=== PATIENT | male | born 1935 | race Caucasian/White ===

== ENCOUNTER 2019-05-17 10:41 | Inpatient (IN) ==
[2019-05-17] MEDS ORDERED: NS 500 ML IV ONE ×2 (11:42→12:56)
[2019-05-17] MEDS ORDERED: LASIX IV ONE ×2 (12:13→15:25)
[2019-05-17] MEDS ORDERED: LOVENOX SUBQ SCH (12:32)
[2019-05-17] MEDS ORDERED: EFFEXOR XR PO ONE (12:32)
[2019-05-17 12:46] LABS: BASO# 0.03 X1000 (0.0-0.2); BASO% 0.2 % (0.0-0.8); EOS# 0.05 X1000 (0.0-0.7); EOS% 0.4 % (0.0-10.0); HEMATOCRIT 18.5 % (42.0-52.0); IMM GRAN# 0.06 X1000 (0.0-0.04); IMM GRAN% 0.5 % (0.0-0.5); LYMPH# 1.03 X1000 (1.2-3.4); LYMPH% 8.4 % (20.5-51.1); MCH 25.7 PG (27-31); MCHC 30.8 g/dL (33-37); MCV 83.3 FL (81-99); MONO% 7.3 % (1.7-9.3); NEUT# 10.21 X1000 (1.4-6.5); NEUT% 83.2 % (42.2-75.2); PLT 422 X1000 (130-400); RBC 2.22 XMIL (4.7-6.1); RDW 21.7 % (11.5-14.5); WBC 12.28 X1000 (4.8-10.8)
[2019-05-17 12:47] LABS: HEMOGLOBIN 5.7 g/dL (14.0-18.0)
[2019-05-17 12:59] LABS: ESTIMATED GFR > 60
[2019-05-17] MEDS ORDERED: SINEMET 25/100 PO SCH (13:00)
[2019-05-17 13:02] LABS: AGAP 14; ALB/GLOB RATIO 2.7; ALKALINE PHOSPHATASE 44 U/L (32-122); BUN 26 mg/dL (8-22); CALCIUM 9.4 mg/dL (8.8-10.2); CHLORIDE 102 mmol/L (98-107); COSMO 283; GLUCOSE 138 mg/dL (70-104); GOT 6 U/L (10-34); GPT < 5 U/L (10-44); SODIUM 138 mmol/L (136-145); TCO2 22 mmol/L (25-35); TOTAL BILIRUBIN 0.65 mg/dL (0.20-1.00); TOTAL PROTEIN 5.5 g/dL (6.3-8.3)
[2019-05-17 13:06] LABS: FREE T4 1.21 ng/dL (0.93-1.70); TSH 1.73 uIUmL (0.27-4.20)
--- NOTE | 2019-05-17 13:27 | EKG Report ---
Test Performed on : 05/17/2019 10:54:12 AM Test Reason : ED. NO order in [place] Blood Pressure : / mmHG Vent. Rate : 082 BPM Atrial Rate : 081 BPM P-R Int : 000 ms QRS Dur : 084 ms QT Int : 402 ms P-R-T Axes : 000 022 083 degrees QTc Int : 469 ms Normal sinus rhythm. Nonspecific T wave abnormality Prolonged QT Abnormal ECG No previous ECGs available Confirmed by Nils Oliveira MD ([id number]) on 05/18/2019 5:35:59 PM
[2019-05-17] MEDS: REQUIP PO SCH ×2 (13:57→18:10)
[2019-05-17] MEDS: SINEMET 25/100 PO SCH ×2 (14:08→18:10)
--- NOTE | 2019-05-17 15:22 | HISTORY AND PHYSICAL ---
CHIEF COMPLAINT: Dizziness and falling at home. HISTORY OF PRESENT ILLNESS: Mr. 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 His provided a lot of history over the telephone this morning, saying that they had gone out of the house to run an errand and then on their way back into their apartment, using his walker, he fell on the grass and did not lose consciousness. He was able to get up with some assistance and made it back into his apartment. He continued to complain of vertigo whenever standing. He slept in a chair last night because they were afraid to try to get him to walk to his bedroom. This morning, he was encouraged to come to my office but she felt he would require an ambulance for safe mobility, so he was transferred to the Emergency Room. Here, his evaluation has revealed severe anemia with a hemoglobin of 5.7, hematocrit of 18.5%. He also complains of 2 weeks of progressive edema, mostly in his legs. On 05/01/2019, he was seen in my office for somewhat similar fall with some back pain and had unremarkable x-rays except a chest x-ray that showed mild cardiomegaly and some tiny bilateral pleural effusions. His edema clearly preceded his dizziness and falling. He also has a history of Parkinson's disease and has reduced balance because of the Parkinson's. PAST MEDICAL HISTORY: Remarkable for essential hypertension and Parkinson's disease for approximately 8 to 9 years. HOME MEDICATIONS: 1. Sinemet 25/100 mg, one 4 times q. day. 2. Sinemet CR 50/200 mg, one twice q. day. 3. Ropinirole 0.5 mg three times q. day. 4. Aspirin 81 mg daily. He was previously on losartan and p.r.n. Lasix, but these were both discontinued 3 to 4 weeks ago when he presented with hypotension. His blood pressure yesterday after the fall was unremarkable and it has remained so today. SOCIAL HISTORY: He is and lives with his in an apartment. They moved here from [place], [place], with a brief stay in [place] prior to arriving here just over a year ago. Their son is an acid operator at [employer] and they chose to come here to be closer to him. They moved from [facility] to an independent apartment several months ago. The patient does not smoke or drink alcohol. He is a lifelong nonsmoker. FAMILY HISTORY: Noncontributory. REVIEW OF SYSTEMS: GENERAL: No fever, chills, night sweats, weight loss. He suspects he has gained some weight with the increased edema. HEENT: Vision and hearing are adequate with no recent changes. RESPIRATORY: No cough, shortness of breath, sputum production. CARDIOVASCULAR: No history of angina or ischemic heart disease. No history of congestive heart failure or valvular heart disease. He has noticed some slightly dyspnea on exertion and began using a walker a week and a half to two weeks ago after his first fall. Prior to that, he was independently walking without assistive devices. GI: Appetite has been good. No nausea, vomiting, diarrhea or constipation. No history of melena or GI bleeding. No history of bright red blood per rectum. : He voids adequately with minimal hesitancy and no history of urinary retention. ORTHOPEDIC: He has intermittent low back pain and bilateral osteoarthritis of both knees but rarely takes any antiinflammatories. NEUROLOGIC: No history of strokes or seizures. PSYCHIATRIC: No history of depression, although his suspected some and he has been on low- dose Effexor at home. His memory has been adequate. PHYSICAL EXAMINATION: VITAL SIGNS: Temperature 97.6 degrees, blood pressure 121/68 without orthostatic changes, heart rate 77, respirations 18, oxygen saturation 97% on room air. GENERAL APPEARANCE: Alert, elderly gentleman with pale conjunctivae. HEENT: Pupils equal, round and reactive to light. Extraocular movements intact. Oropharynx is benign except for pale mucous membranes. NECK: Supple without adenopathy, JVD or thyromegaly. CHEST: Exam is clear to auscultation and percussion bilaterally. CARDIOVASCULAR: Regular rate and rhythm with normal S1, S2. No S3 or murmurs are heard. ABDOMEN: Soft, obese and nontender with active bowel sounds. Hemoccult is negative with brown stool. EXTREMITIES: There is diffuse pitting edema to above both knees. His hands and arms also seem somewhat edematous, although not pitting. NEUROLOGICAL: He is alert and talkative with clear speech and intact recent and remote memory. DATA BASE: White blood count 12,280, hemoglobin 5.7, hematocrit 18.5%, platelet count 422,000. MCV is 83, red cell distribution width is 25.7. Sodium 138, potassium 5.0, BUN 26, creatinine 1.0, glucose 138, total protein slightly reduced at 5.5. Chest x-ray done last week shows borderline cardiomegaly and tiny bilateral pleural effusions. ASSESSMENT: 1. Severe normocytic and normochromic anemia with increased red cell distribution width. He may have a combination of iron deficiency and megaloblastic anemia or perhaps some myeloproliferative disorder. We will check a ferritin level, B12 and folate and transfuse 2 units today with perhaps more to come later. 2. Anasarca with ProBNP slightly elevated at 1500. I suspect he has high output congestive heart failure secondary to his severe anemia. 3. Parkinson's disease. We will try to prevent any further reduction in his mobility by getting him out of bed 3 times a day with meals and ambulating with Physical Therapy daily. 4. Possible reduced ejection fraction. We will get an echocardiogram to check his LV function and valvular function. Cardiology consult has also been ordered. TREATMENT PLAN: As above. cc: Dell Schmitt MD
[2019-05-17 16:22] LABS: URINE SOURCE CLEAN CATCH
[2019-05-17 16:31] LABS: BILIRUBIN URINE NEGATIVE (NEGATIVE); BLOOD URINE NEGATIVE (NEGATIVE); COLOR YELLOW; GLUCOSE URINE NEGATIVE (NEGATIVE); KETONE URINE NEGATIVE (NEGATIVE); LEUKOCYTES URINE NEGATIVE (NEGATIVE); NITRITE URINE NEGATIVE (NEGATIVE); PROTEIN URINE NEGATIVE (NEGATIVE); SP GRAVITY URINE 1.017; TURBIDITY URINE CLEAR (CLEAR); UROBILINOGEN URINE NORMAL (NORMAL)
--- NOTE | 2019-05-17 16:31 | Diag Imaging Result Doc PS360 ---
EXAM: CHEST-PORTABLE INDICATION: dyspnea TECHNIQUE: One view COMPARISON: 05/02/2019 FINDINGS: There is mild to moderate prominence of the central vasculature suggesting pulmonary venous congestion. There is blunting of the costophrenic angles bilaterally indicative of small effusions. There is no evidence of pneumothorax. There is stable cardiomegaly. IMPRESSION: Pulmonary venous congestion and small pleural effusions as described. Electronically signed by Jacob Lipscomb 05/17/2019 4:29 PM
[2019-05-17 16:33] LABS: UR EPITHELIAL CELLS <10 /HPF (<10); URINE BACTERIA NEGATIVE /HPF; URINE RBC <10 /HPF (<10); URINE WBC <10 /HPF (<10)
--- NOTE | 2019-05-17 16:34 | CONSULTATION ---
DATE OF CONSULTATION: 05/17/2019 IMPRESSION: 1. Congestive heart failure with elevated central venous pressure and severe edema with echocardiography noteworthy for severe pulmonary hypertension and preserved left ventricular ejection fraction. The patient does manifest predominantly acute right-sided congestive heart failure. 2. Severe anemia, etiology not clear. 3. Parkinson disease. RECOMMENDATIONS: 1. Follow up echocardiography result. 2. Diurese with IV Lasix. 3. Agree with plans for transfusion. 4. Further evaluation of anemia. 5. Further recommendations to follow based on patient's clinical course. 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 He has no history of heart problems. He has been living in an apartment with his . He had some decline in his physical ability and uses a walker. He started having progressive edema in the last 7 to 10 days. There has been no orthopnea nor chest pain. He started having some postural lightheadedness. Recently he had gone out of the house to run an errand with his and on the way back to the apartment, he fell on the grass. He uses a walker, as noted before. There was no syncope. He was having some postural lightheadedness. Today he was brought to the hospital by ambulance for evaluation in emergency room given his progressive weakness. He has had some shortness of breath with activity as well. There has been no chest pain or orthopnea. PAST MEDICAL HISTORY: 1. Parkinson disease. 2. Hypertension. ALLERGIES: No known drug allergies. MEDICATIONS PRIOR TO ADMISSION: As listed. SOCIAL HISTORY: He is and lives in an apartment locally with his . He is originally from [place], [place], and moved to the [facility] to be closer to his son who works as an graduate student locally. He has never smoked. He does not use alcohol. FAMILY HISTORY: Negative for premature coronary disease. REVIEW OF SYSTEMS: Pulmonary: Noteworthy for exertional shortness of breath. Gastrointestinal: Noncontributory. There has been no melena or bright red blood per rectum. CONSTITUTIONAL: Positive for postural lightheadedness. There has been no syncope. There has been no fever. Remainder review of systems negative/noncontributory with 14 total systems reviewed. PHYSICAL EXAMINATION: General: This is an elderly white male, in no distress on room air. Vital signs: Blood pressure 121/66, heart rate 77, oxygen saturation 97% on room air. HEENT: Extraocular movements intact. Mucous membranes are moist. Extraocular muscles intact. Mucous membranes are moist. Neck: Supple. Jugular venous distention is evident, consistent with elevated central venous pressure. There are no carotid bruits. Chest: Auscultation of the chest reveals a few inspiratory crackles in the left base posteriorly with some diminished breath sounds in the right base. Cardiac: Reveals a regular rate and rhythm without appreciable murmur or gallop. Abdomen: Soft. Bowel sounds are normal. Extremities: Demonstrate 3+ edema to above the level of the knees. Neurologic Exam: Alert and responsive. Speech is fluent. Moves all 4 extremities equally well. PERTINENT DATA: Twelve lead EKG demonstrates sinus rhythm. Nonspecific T-wave abnormality and borderline QT interval prolongation. LABORATORY DATA: Includes a white blood cell count 12.28, hematocrit 18.5, hemoglobin 5.7, platelet count 422,000. Sodium 138, potassium 5.1, chloride 102, carbon dioxide 22, BUN 26, creatinine 1.0, glucose 138. TSH 1.73. Pro B-natriuretic peptide level 1534. cc: MD Dell Rodriguez MD
--- NOTE | 2019-05-17 17:08 | ECHO REPORT ---
ORDER DATE: 05/17/2019 INTERPRETING PHYSICIAN: Deshaun Joe MD. CLINICAL INDICATIONS: CHF. M-MODE MEASUREMENTS: Left ventricle end diastole: 4.6 cm. Left ventricle end systole: 2.3 cm. Posterior wall: 1.1 cm. Interventricular septum: 1.1 cm. Left atrium: 4.4 cm. Aortic diameter: 2.9 cm. SUMMARY OF 2-DIMENSIONAL IMAGIN. Left ventricular function is hyperdynamic. Ejection fraction in the neighborhood of 75% to 80%. The right ventricle appears to be normal. There is a small pericardial effusion adjacent to the right ventricular free wall. The inferior vena cava is at the upper limits of normal. 2. The mitral annulus shows moderate calcification. Color flow mapping of the mitral valve shows no significant regurgitation. There is some mild gradient across the mitral valve. The mean gradient is about 8 mmHg. There is calcification of the annulus, possibly a mild degree of calcific mitral stenosis. 3. The tricuspid valve shows moderate degree of regurgitation. 4. Pulmonary pressure is estimated at 97 mmHg. 5. The pulmonic valve is grossly unremarkable. 6. The pulse wave Doppler of mitral inflow shows "normal" E/A ratio. 7. Tissue Doppler of the septal and lateral mitral annulus averages 5.5 cm. That is consistent with impaired left ventricular relaxation. 8. I do not see evidence of masses or thrombus. 9. The left atrium is significantly enlarged. 10.The right atrium is probably moderately enlarged also. SUMMARY: This study shows: 1. Hyperdynamic left ventricle. 2. Dense calcification of the mitral annulus with calcific mitral stenosis with a mild gradient of about 8 mmHg. 3. Sclerosis/calcification of the aortic valve without definite stenosis. Mean gradient across the aortic valve is 9 mmHg. 4. Impaired left ventricular relaxation. 5. Significant enlargement of the left atrium. 6. Severe pulmonary hypertension estimated at 97 mmHg. Clinical correlation recommended. cc: MD Dell Dale MD
[2019-05-17] MEDS: NS 500 ML IV ONE ×2 (19:45→22:42)
[2019-05-17] MEDS ORDERED: SINEMET CR 25/100 PO SCH (22:00)
[2019-05-17] MEDS: LOVENOX SUBQ SCH (22:40)
[2019-05-18 06:55] LABS: HEMOGLOBIN 7.4 g/dL (14.0-18.0)
[2019-05-18] MEDS ORDERED: LASIX IV ONE (09:00)
[2019-05-18] MEDS: EFFEXOR XR PO SCH (09:25)
[2019-05-18] MEDS: REQUIP PO SCH ×3 (09:25→17:16)
[2019-05-18] MEDS ORDERED: SINEMET CR 25/100 PO ONE (09:25)
[2019-05-18] MEDS: ASPIRIN EC PO SCH (09:26)
[2019-05-18] MEDS: CYANOCOBALAMIN IM SCH (09:38)
[2019-05-18] MEDS: FOLIC ACID PO SCH (09:39)
[2019-05-18] MEDS ORDERED: FERGON PO SCH (09:45)
[2019-05-18] MEDS: SINEMET 25/100 PO SCH ×2 (13:16→17:17)
[2019-05-18] MEDS: VITAMIN C PO SCH (14:23)
[2019-05-18] MEDS: FERGON PO SCH (14:24)
[2019-05-18] MEDS: SINEMET CR 25/100 PO SCH (21:20)
[2019-05-18] MEDS: LOVENOX SUBQ SCH (21:21)
[2019-05-19 05:59] LABS: BASO# 0.02 X1000 (0.0-0.2); BASO% 0.3 % (0.0-0.8); EOS# 0.14 X1000 (0.0-0.7); HEMATOCRIT 23.8 % (42.0-52.0); HEMOGLOBIN 7.4 g/dL (14.0-18.0); LYMPH% 12.9 % (20.5-51.1); MCH 26.2 PG (27-31); MCHC 31.1 g/dL (33-37); MCV 84.4 FL (81-99); MONO# 0.62 X1000 (0.11-0.59); MONO% 8.9 % (1.7-9.3); MPV 10.2 FL (7.4-10.4); NEUT# 5.29 X1000 (1.4-6.5); NEUT% 75.9 % (42.2-75.2); PLT 369 X1000 (130-400); RBC 2.82 XMIL (4.7-6.1); RDW 18.3 % (11.5-14.5); WBC 6.97 X1000 (4.8-10.8)
[2019-05-19 06:17] LABS: AGAP 14; BUN 22 mg/dL (8-22); CALCIUM 8.7 mg/dL (8.8-10.2); CHLORIDE 101 mmol/L (98-107); COSMO 284; CREATININE 0.9 mg/dL (0.7-1.2); ESTIMATED GFR > 60; GLUCOSE 117 mg/dL (70-104); POTASSIUM 3.9 mmol/L (3.5-5.1); SODIUM 140 mmol/L (136-145); TCO2 25 mmol/L (25-35); TOTAL IRON 219 ug/dL (53-167)
[2019-05-19] MEDS: SINEMET 25/100 PO SCH ×3 (06:18→17:49)
[2019-05-19 07:29] LABS: UNBOUND IRON 19 ug/dL (112-346)
[2019-05-19 07:34] LABS: IRON SATURATION 92 %; TIBC 238 ug/dL
[2019-05-19] MEDS: FOLIC ACID PO SCH (08:38)
[2019-05-19] MEDS: ASPIRIN EC PO SCH (08:38)
[2019-05-19] MEDS: EFFEXOR XR PO SCH (08:38)
[2019-05-19] MEDS: SINEMET CR 25/100 PO SCH ×2 (08:38→21:29)
[2019-05-19] MEDS: CYANOCOBALAMIN IM SCH (08:39)
[2019-05-19] MEDS: REQUIP PO SCH ×3 (08:40→17:48)
--- NOTE | 2019-05-19 13:46 | PROGRESS NOTE ---
DATE: 05/19/2019 This is a patient of Dr. Schmitt. Was admitted on 05/17/2019. Had some dizziness and falling at home. He claims that the dizziness is mainly when he is standing up. 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 His gave most of the history, saying that he gone out of the house to run an errand. On the way back in the apartment, he was using his walker. He fell on the grass but did not lose consciousness. He was able to get up with some assistance. He felt like his head was just kind of projecting forward, was his description, but he has had these spells now for a little while. He came into the emergency room. His past medical history includes Parkinson's which I think was in 2011 with diagnosis. He is on Sinemet 25/100 four times a day and Sinemet CR 50/200 one twice a day. He is on ropinirole 0.5 mg 3 times a day and aspirin 81 mg a day on presentation. PHYSICAL EXAMINATION: Today, he was sitting in a chair. He is awake and alert, and carried on a good conversation. Answered questions appropriately. Denies any dizzy feelings at the present time. He did state that when he got dizzy, sometimes he was nauseated. Temperature 97.9 degrees, pulse 68, respirations 16, blood pressure 121/50. Pupils are equal and round. Lungs are clear in all lung multani. Cardiovascular Examination: Regular rhythm and rate without murmur or S3. Urine output was 500 mL. He does have a history of congestive heart failure and he did have evidence of elevated central venous pressure and severe edema. Echocardiogram noteworthy for severe pulmonary hypertension and preserved left ventricular ejection fraction. He does manifest predominantly acute right-sided congestive heart failure. History of severe anemia, etiology unclear. Of course, Parkinson's. REVIEW HIS CURRENT ORDERS: He is on vitamin C 500 mg a day, aspirin 81 mg a day, carbidopa/levodopa. He is on 25/100 and he is taking one of those 3 times a day. He takes a long- acting carbidopa/levodopa twice a day extended release and that is the 25/100. Aspirin 81 mg a day, ferrous gluconate 240 mg a day, folic acid 1 mg a day, Requip or ropinirole 0.5 mg p.o. t.i.d., and he is on Effexor ER 35/5 p.o. daily. He was given a dose of Lasix, I believe yesterday. LABORATORY DATA: Reviewed. His blood count is higher. It was at 5.7, 7.4. Hematocrit has come from 18 to 23. He was transfused 2 units of packed red blood cells. I asked about physical therapy, which he already has that ordered. We will see how he does with ambulation. Looking over his blood pressures, they look good. Last several numbers 123/52, 135/59, 143/65, 140/62, and 121/50. His heart rate has been between 66 and 76. cc: MD Dell Linder MD
[2019-05-19] MEDS: FERGON PO SCH (15:45)
[2019-05-19] MEDS: VITAMIN C PO SCH (15:45)
[2019-05-19] MEDS: LOVENOX SUBQ SCH (21:29)
[2019-05-20] MEDS: SINEMET 25/100 PO SCH (06:26)
[2019-05-20 08:25] VITALS: BP 138/56
[2019-05-20] MEDS: ASPIRIN EC PO SCH (08:28)
[2019-05-20] MEDS: FOLIC ACID PO SCH (08:28)
[2019-05-20] MEDS: SINEMET CR 25/100 PO SCH (08:29)
[2019-05-20] MEDS: REQUIP PO SCH (08:29)
[2019-05-20] MEDS: CYANOCOBALAMIN IM SCH (08:29)
[2019-05-20] MEDS: EFFEXOR XR PO SCH (08:34)
--- NOTE | 2019-05-20 10:18 | DISCHARGE SUMMARY ---
ADMISSION DATE: 05/17/2019 DISCHARGE DATE: 05/20/2019 FINAL DIAGNOSES: 1. Pernicious anemia with hemoglobin of 5.7. 2. Folic acid deficiency. 3. Pulmonary hypertension with right-sided congestive heart failure. 4. Mitral stenosis, mild. 5. Parkinson disease. 6. History of hypertension. 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 He was using a walker which he only began using approximately a week ago. In the emergency room, he was found to have a hemoglobin of 5.7 g, hematocrit of 18.5%. He also mentioned 2 weeks of progressive edema, mostly in his legs. Past medical history is remarkable for approximately 8-year history of progressive Parkinson disease and limited balance. HOSPITAL COURSE: Physical exam was remarkable for pale mucous membranes and clear lung multani. He had moderate diffuse pitting edema to both knees. Database showed hemoglobin 5.7, hematocrit 18.5%, platelet count 422,000, red cell distribution width was 21.7. He was admitted and after B12 and folate levels were obtained, he was transfused 2 units of packed red blood cells. His vitamin B12 level was 150, his folate level was 6.8, both low. TSH and free T4 were normal. Iron studies revealed iron of 219, TIBC of 238, 92% saturated. He was given several doses of intravenous Lasix and had good urine output. His edema improved significantly. An echocardiogram revealed normal to hyperdynamic left ventricular function and normal wall motion. He was noted to have a PA systolic pressure estimated at 97 mmHg, indicating significant pulmonary hypertension. He was also noted to have calcific aortic and mitral valve sclerosis with some slight gradient of mitral valve of 8 mmHg. family consultant felt he had predominantly right-sided congestive heart failure due to the anemia. With transfusion, his symptoms improved, and he was able to maintain limited mobility in the hospital. Although he would, under better circumstances, be considered for rehab, I feel with the current virus circulating that he is better off at home with home health, and arrangements were made for home health referral to complete his primary series of B12 injections and also for some physical therapy to maintain and improve his mobility. At the time of discharge, he is reasonably active, and I was able to assist him predominantly standby to a bedside chair for breakfast. I called his and his son to notify them of discharge, and they will pick him up later today. DISCHARGE MEDICATIONS: Sinemet 25/100 one and one-half tablets 3 times a day, Sinemet CR 25/100 one twice a day, ropinirole 0.5 mg 3 times a day, vitamin B12 1000 mcg IM daily for 3 days and then weekly for 4 weeks, folic acid 1 mg daily. He is to return to my office in 8 to 14 days for transition of care visit. cc: Dell Schmitt MD
== END 2019-05-20 12:03 | disposition home health service (06) | DRG 812 ==
LOC: ED 10:41 → EDIPHOLD 12:00 → 1N 14:40
PROVIDERS: ADMIT Internal Medicine; ATTEND Internal Medicine